=== PATIENT | male | born 1965 | race Caucasian/White ===

== ENCOUNTER 2016-10-17 21:43 | Emergency (ER) | payer SELFPAY ==
[~2016-10-17] VITALS: Ht 167.6 cm; Wt 74.8 kg
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
[2016-10-17] MEDS ORDERED: LIDOCAINE 1%/EPI 1:100,000 20 ML VIAL. INJ ONE (22:30)
[2016-10-17 23:00] VITALS: BP 115/69
[2016-10-17] MEDS ORDERED: IOHEXOL 300 MG/ML 75 ML VIAL IV ONE (23:00)
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
== END 2016-10-18 01:10 | disposition left against medical advice (07) ==
LOC: ER 21:43
DX: S01.81XA Laceration without foreign body of other part of head, initial encounter (principal); S93.401A Sprain of unspecified ligament of right ankle, initial encounter; S00.03XA Contusion of scalp, initial encounter; S30.811A Abrasion of abdominal wall, initial encounter; S60.519A Abrasion of unspecified hand, initial encounter; J93.9 Pneumothorax, unspecified; Z88.0 Allergy status to penicillin; V23.4XXA Motorcycle driver injured in collision with car, pick-up truck or van in traffic accident, initial encounter; Y93.89 Activity, other specified; Y92.89 Other specified places as the place of occurrence of the external cause; Y99.8 Other external cause status
CPT/HCPCS: 12001; 70450; 71260; 72125; 73610; 99284; J3490; Q9967